=== PATIENT | female | born 1935 | race Caucasian/White ===

== ENCOUNTER 2020-08-24 19:25 | Emergency (ER) | payer SELFPAY ==
[~2020-08-24] VITALS: Ht 170.2 cm; Wt 70.0 kg
[2020-08-24 19:44] VITALS: Ht 170.2 cm; Wt 70.0 kg
[2020-08-24] MEDS ORDERED: ULTRAM50 MG PO (22:38)
[2020-08-24] MEDS ORDERED: CEPHALEXIN500 M1 PO (22:38)
[2020-08-24 23:32] VITALS: BP 155/75
== END 2020-08-24 23:24 | disposition home or self-care (01) ==
LOC: D.ER 19:25
DX: S01.81XA Laceration without foreign body of other part of head, initial encounter (principal); S01.412A Laceration without foreign body of left cheek and temporomandibular area, initial encounter; S51.012A Laceration without foreign body of left elbow, initial encounter; W19.XXXA Unspecified fall, initial encounter